=== PATIENT | male | born 1995 | race Asian ===

== ENCOUNTER 2021-02-18 08:39 | Emergency (ER) | payer OTHER | END 2021-02-18 09:46 | disposition home or self-care (01) | LOC: ERS 08:39 | DX: S20.211A Contusion of right front wall of thorax, initial encounter (principal); V00.311A Fall from snowboard, initial encounter; Y93.23 Activity, snow (alpine) (downhill) skiing, snowboarding, sledding, tobogganing and snow tubing ==